=== PATIENT | female | born 1950 | race Native Hawaiian/Other Pacific Islander ===

== ENCOUNTER 2016-09-10 07:53 | Outpatient (CLI) | payer OTHER, MEDICARE ==
[~2016-09-10 07:53] MED LIST: ASA LO-DOSE81 MG OR; HYDR25TA60 PO; INSU100I2 SC; LEVAQUIN500 MG OR; METF100038 OR; MULTIVITAMI1 OR; MYSOLINE50 MG OR; SIMV20TA2 PO; TRIM800T12 PO
[2016-09-10 08:44] LABS: PLATELET COUNT 382 K/uL (152-353)
[2016-09-10 09:14] LABS: POTASSIUM 3.2 mmol/L (3.6-5.2); SODIUM 135 mmol/L (136-145)
== END 2016-09-10 21:24 | disposition home or self-care (01) ==
LOC: LABW 07:53
PROVIDERS: Family Medicine
DX: E11.9 Type 2 diabetes mellitus without complications (principal); I10 Essential (primary) hypertension; E55.9 Vitamin D deficiency, unspecified; E03.8 Other specified hypothyroidism; Z85.43 Personal history of malignant neoplasm of ovary; R82.99 Other abnormal findings in urine
CPT/HCPCS: 36415; 80053; 80061; 81000; 82043; 82306; 82570; 83036; 84439; 84443; 84550; 85027; 86304; 87077; 87086; 87088; 87186

== ENCOUNTER 2016-11-03 14:24 | Outpatient (CLI) | payer OTHER, MEDICARE | END 2016-11-03 19:45 | disposition home or self-care (01) | LOC: MAMMO 14:24 | DX: Z12.31 Encounter for screening mammogram for malignant neoplasm of breast (principal) | CPT/HCPCS: G0202-TC ==

== ENCOUNTER 2016-11-14 11:01 | Outpatient (CLI) | payer OTHER, MEDICARE | END 2016-11-14 12:01 | disposition home or self-care (01) | LOC: ED 11:01 | DX: Z23 Encounter for immunization (principal) | CPT/HCPCS: 90715; 96372 ==

== ENCOUNTER 2016-11-25 13:58 | Outpatient (CLI) | payer OTHER, MEDICARE | END 2016-11-25 19:20 | disposition home or self-care (01) | LOC: US 13:58 → MAMMO 14:00 → US 19:20 | DX: R92.8 Other abnormal and inconclusive findings on diagnostic imaging of breast (principal) | CPT/HCPCS: G0206-TC ==

== ENCOUNTER 2017-01-26 12:59 | Outpatient (CLI) | payer OTHER, MEDICARE | END 2017-01-26 19:30 | disposition home or self-care (01) | LOC: LAB 12:59 | DX: N39.0 Urinary tract infection, site not specified (principal) | CPT/HCPCS: 87077; 87086; 87088; 87186 ==

== ENCOUNTER 2017-02-23 12:36 | Outpatient (CLI) | payer OTHER, MEDICARE | END 2017-02-23 13:40 | disposition home or self-care (01) | LOC: RAD 12:36 | DX: C50.412 Malignant neoplasm of upper-outer quadrant of left female breast (principal) ==

== ENCOUNTER 2017-03-16 12:29 | Outpatient (CLI) | payer OTHER, MEDICARE | END 2017-03-16 19:37 | disposition home or self-care (01) | LOC: LAB 12:29 | DX: N39.0 Urinary tract infection, site not specified (principal) | CPT/HCPCS: 87088 ==

== ENCOUNTER 2018-08-04 08:38 | Outpatient (CLI) | payer OTHER, MEDICARE ==
[2018-08-04 09:04] LABS: PLATELET COUNT 336 K/uL (152-353)
[2018-08-04 09:19] LABS: POTASSIUM 3.3 mmol/L (3.6-5.2)
== END 2018-08-04 23:35 | disposition home or self-care (01) ==
LOC: LABW 08:38
PROVIDERS: Internal Medicine
DX: E11.9 Type 2 diabetes mellitus without complications (principal)
CPT/HCPCS: 36415; 80053; 80061; 81000; 82043; 82570; 83036; 84443; 85027

== ENCOUNTER 2018-08-10 09:53 | Outpatient (CLI) | payer OTHER, MEDICARE | END 2018-08-10 23:00 | disposition home or self-care (01) | LOC: CT 09:53 | DX: R10.32 Left lower quadrant pain (principal) | CPT/HCPCS: Q9963 ==

== ENCOUNTER 2018-11-22 11:50 | Outpatient (CLI) | payer OTHER, MEDICARE | END 2018-11-22 21:08 | disposition home or self-care (01) | LOC: LAB 11:50 | DX: R30.0 Dysuria (principal) | CPT/HCPCS: 87086; 87088 ==

== ENCOUNTER 2018-12-12 13:38 | Outpatient (CLI) | payer OTHER, MEDICARE | END 2018-12-12 18:00 | disposition home or self-care (01) | LOC: LABW 13:38 | DX: N39.0 Urinary tract infection, site not specified (principal) | CPT/HCPCS: 81000; 87077; 87086; 87088; 87186 ==

== ENCOUNTER 2019-02-07 13:52 | Outpatient (CLI) | payer OTHER, MEDICARE | END 2019-02-07 22:57 | disposition home or self-care (01) | LOC: RAD 13:52 | DX: C50.412 Malignant neoplasm of upper-outer quadrant of left female breast (principal); N95.8 Other specified menopausal and perimenopausal disorders ==

== ENCOUNTER 2019-04-26 09:52 | Outpatient (CLI) | payer OTHER, MEDICARE | END 2019-04-26 19:57 | disposition home or self-care (01) | LOC: US 09:52 | DX: R19.03 Right lower quadrant abdominal swelling, mass and lump (principal) ==

== ENCOUNTER 2019-12-05 08:35 | Outpatient (CLI) | payer OTHER, MEDICARE ==
[2019-12-05 08:56] LABS: PLATELET COUNT 369 K/uL (152-353)
[2019-12-05 09:12] LABS: POTASSIUM 3.4 mmol/L (3.6-5.2)
== END 2019-12-05 19:10 | disposition home or self-care (01) ==
LOC: LABW 08:35
PROVIDERS: Internal Medicine
DX: Z01.818 Encounter for other preprocedural examination (principal); E11.9 Type 2 diabetes mellitus without complications; R82.998 Other abnormal findings in urine
CPT/HCPCS: 36415; 80053; 80061; 81000; 82043; 82570; 83036; 84439; 84443; 85027; 87086; 87088

== ENCOUNTER 2020-06-26 11:50 | Outpatient (CLI) | payer OTHER, MEDICARE ==
[2020-06-26 12:35] LABS: POTASSIUM 3.8 mmol/L (3.6-5.2)
== END 2020-06-26 23:24 | disposition home or self-care (01) ==
LOC: LABW 11:50
PROVIDERS: Internal Medicine Cardiovascular Disease
DX: Z79.899 Other long term (current) drug therapy (principal)
CPT/HCPCS: 36415; 80048

== ENCOUNTER 2020-12-23 16:03 | Outpatient (CLI) | payer OTHER, MEDICARE ==
[2020-12-23 16:18] LABS: PLATELET COUNT 345 K/uL (152-353)
[2020-12-23 16:34] LABS: POTASSIUM 4.7 mmol/L (3.6-5.2)
== END 2020-12-23 22:32 | disposition home or self-care (01) ==
LOC: LAB 16:03
PROVIDERS: ATTEND Internal Medicine
DX: E11.9 Type 2 diabetes mellitus without complications (principal); R82.998 Other abnormal findings in urine
CPT/HCPCS: 80053; 80061; 81000; 82043; 83036; 84439; 84443; 85027; 87077; 87086; 87088; 87186

== ENCOUNTER 2021-02-10 13:58 | Outpatient (CLI) | payer OTHER, MEDICARE | END 2021-02-10 20:05 | disposition home or self-care (01) | LOC: RAD 13:58 | PROVIDERS: ATTEND Nurse Practitioner Family | DX: Z13.820 Encounter for screening for osteoporosis (principal); N95.8 Other specified menopausal and perimenopausal disorders; C50.912 Malignant neoplasm of unspecified site of left female breast; C50.412 Malignant neoplasm of upper-outer quadrant of left female breast ==

== ENCOUNTER 2021-03-05 09:33 | Outpatient (CLI) | payer OTHER, MEDICARE | END 2021-03-05 22:12 | disposition home or self-care (01) | LOC: US 09:33 | PROVIDERS: ATTEND Internal Medicine Cardiovascular Disease | DX: R09.89 Other specified symptoms and signs involving the circulatory and respiratory systems (principal) ==

== ENCOUNTER 2021-10-14 13:19 | Outpatient (CLI) | payer OTHER, MEDICARE | END 2021-10-14 19:02 | disposition home or self-care (01) | LOC: LAB 13:19 | PROVIDERS: ATTEND Internal Medicine | DX: D64.9 Anemia, unspecified (principal); E53.8 Deficiency of other specified B group vitamins | CPT/HCPCS: 82607; 82728; 82746; 83540; 83550 ==

== ENCOUNTER 2022-01-13 13:59 | Outpatient (CLI) | payer OTHER, MEDICARE | END 2022-01-13 19:05 | disposition home or self-care (01) | LOC: MRI 13:59 | PROVIDERS: ATTEND Psychiatry & Neurology Neurology | DX: M54.12 Radiculopathy, cervical region (principal) ==

== ENCOUNTER 2022-04-08 10:33 | Outpatient (CLI) | payer OTHER, MEDICARE ==
[2022-04-08 11:18] LABS: PLATELET COUNT 323 K/uL (152-353)
== END 2022-04-08 19:23 | disposition home or self-care (01) ==
LOC: LABW 10:33
PROVIDERS: ATTEND Neurological Surgery
DX: Z01.818 Encounter for other preprocedural examination (principal); G56.01 Carpal tunnel syndrome, right upper limb; Z79.01 Long term (current) use of anticoagulants; I10 Essential (primary) hypertension
CPT/HCPCS: 36415; 80048; 85027

== ENCOUNTER 2022-05-12 12:39 | Outpatient (CLI) | payer OTHER, MEDICARE | END 2022-05-12 19:38 | disposition home or self-care (01) | LOC: LAB 12:39 | PROVIDERS: ATTEND Internal Medicine | DX: N39.0 Urinary tract infection, site not specified (principal) | CPT/HCPCS: 87077; 87086; 87088; 87186 ==

== ENCOUNTER 2022-09-07 12:19 | Outpatient (CLI) | payer OTHER, MEDICARE | END 2022-09-07 21:38 | disposition home or self-care (01) | LOC: LAB 12:19 | PROVIDERS: ATTEND Internal Medicine | DX: Z00.00 Encounter for general adult medical examination without abnormal findings (principal); Z13.820 Encounter for screening for osteoporosis; E55.9 Vitamin D deficiency, unspecified; E11.9 Type 2 diabetes mellitus without complications | CPT/HCPCS: 80053; 80061; 81002; 82306; 83036; 84439; 84443 ==

== ENCOUNTER 2023-01-24 09:42 | Emergency (ER) | payer OTHER, MEDICARE ==
[~2023-01-24] VITALS: Ht 152.4 cm; Wt 78.0 kg
[2023-01-24 09:55] VITALS: BP 182/77; TEMP 98.6
== END 2023-01-24 10:58 | disposition home or self-care (01) ==
LOC: ED 09:42
DX: M10.9 Gout, unspecified (principal)
CPT/HCPCS: 96372; 99282; J1885

== ENCOUNTER 2023-01-26 12:15 | Outpatient (CLI) | payer OTHER, MEDICARE | END 2023-01-26 21:58 | LOC: RAD 12:15 | PROVIDERS: ATTEND Internal Medicine | DX: M12.58 Traumatic arthropathy, other specified site (principal) ==

== ENCOUNTER 2023-03-09 21:56 | Observation (INO) | payer OTHER, MEDICARE ==
[~2023-03-09] VITALS: Ht 152.4 cm; Wt 79.9 kg
[2023-03-09 22:12] VITALS: BP 134/59; TEMP 98.3
[2023-03-09 22:20] VITALS: BP 141/70
[2023-03-09 22:24] LABS: PLATELET COUNT 361 K/uL (152-353)
[2023-03-09 22:30] VITALS: BP 140/73
[2023-03-09 22:33] LABS: POTASSIUM 3.2 mmol/L (3.6-5.2)
[2023-03-09 23:00] VITALS: BP 117/55
[2023-03-09 23:30] VITALS: BP 146/74
[2023-03-10] VITALS (7 sets, daily range): BP systolic 140–193; BP diastolic 62–84; TEMP 97.6–99; Ht 152.4 cm; Wt 79.9 kg
[2023-03-10 05:23] LABS: PLATELET COUNT 336 K/uL (152-353)
[2023-03-10] MEDS ORDERED: BENICAR40 MG PO (05:23)
[2023-03-10] MEDS ORDERED: SIMV20TA2 PO (05:24)
[2023-03-10] MEDS ORDERED: LEVO-T25 MCG PO (05:24)
[2023-03-10] MEDS ORDERED: METFORMIN ER1000 MG PO (05:25)
[2023-03-10] MEDS ORDERED: PRIMIDONE50 M1 PO (05:26)
[2023-03-10] MEDS ORDERED: INSU100I2 SC (05:26)
[2023-03-10] MEDS ORDERED: KP FOLIC ACID1 MG PO (05:28)
[2023-03-10] MEDS ORDERED: B121000 MC1 PO (05:30)
[2023-03-10] MEDS ORDERED: BAYER ASA325 M1 PO (05:33)
[2023-03-10] MEDS ORDERED: CALCIUM600 M1 PO (05:35)
[2023-03-10 05:45] LABS: POTASSIUM 3.4 mmol/L (3.6-5.2)
[2023-03-10] MEDS ORDERED: METFORMIN HYD1000 MG PO (12:53)
[2023-03-10] MEDS ORDERED: CYAN10009 IM (12:58)
[2023-03-10] MEDS ORDERED: MITIGARE0.6 MG PO (12:59)
[2023-03-10] MEDS ORDERED: ONDA4TAB3 PO (12:59)
[2023-03-10] MEDS ORDERED: OLMESARTAN MEDO PO (13:02)
[2023-03-11 04:00] VITALS: BP 136/85; TEMP 96.9
[2023-03-11 06:23] LABS: POTASSIUM 3.6 mmol/L (3.6-5.2)
[2023-03-11 06:33] LABS: PLATELET COUNT 350 K/uL (152-353)
[2023-03-11 08:00] VITALS: BP 132/66; TEMP 97.9
[2023-03-11] MEDS ORDERED: CLOP75TA2 PO (11:37)
[2023-03-11] MEDS ORDERED: Atorvastatin Calcium PO (11:38)
[2023-03-11 12:00] VITALS: BP 132/54; TEMP 98.6
== END 2023-03-11 14:10 | disposition home or self-care (01) ==
LOC: ED 21:56 → MED/SURG 23:08
PROVIDERS: Family Medicine; Internal Medicine Endocrinology, Diabetes & Metabolism; ADMIT Internal Medicine; ATTEND Internal Medicine
DX: I63.89 Other cerebral infarction (principal); R29.810 Facial weakness; R47.81 Slurred speech; I10 Essential (primary) hypertension; E11.9 Type 2 diabetes mellitus without complications; E03.9 Hypothyroidism, unspecified; E53.8 Deficiency of other specified B group vitamins; M10.9 Gout, unspecified; N39.0 Urinary tract infection, site not specified; Z79.899 Other long term (current) drug therapy; Z79.4 Long term (current) use of insulin
CPT/HCPCS: 36415; 80048; 80053; 80061; 81000; 81002; 82948; 83735; 84100; 84443; 85027; 85610; 87086; 87088; 93005; 96361; 96365; 96367; 96372; 96374; 96375; 99221; 99284; G0378; J0696; J2930; J3475

== ENCOUNTER 2023-03-14 13:21 | Emergency (ER) | payer OTHER, MEDICARE ==
[~2023-03-14] VITALS: Ht 152.4 cm; Wt 74.4 kg
[2023-03-14 13:21] VITALS: TEMP 98.6
[~2023-03-14 13:21] MED LIST changes: +Atorvastatin Calcium PO; +B121000 MC1 PO; +BAYER ASA325 M1 PO; +BENICAR40 MG PO; +CALCIUM600 M1 PO; +CLOP75TA2 PO; +CYAN10009 IM; +KP FOLIC ACID1 MG PO; +LEVO-T25 MCG PO; +METFORMIN ER1000 MG PO; +METFORMIN HYD1000 MG PO; +MITIGARE0.6 MG PO; +OLMESARTAN MEDO PO; +ONDA4TAB3 PO; +PRIMIDONE50 M1 PO
[2023-03-14 13:53] LABS: PLATELET COUNT 396 K/uL (152-353)
[2023-03-14 13:59] LABS: POTASSIUM 3.2 mmol/L (3.6-5.2)
[2023-03-14 14:52] LABS: PARTIAL THROMBOPLASTIN TIME 29.7 SECONDS (23.9-36.7)
[2023-03-14 15:30] VITALS: BP 119/83
== END 2023-03-14 15:34 | disposition short-term general hospital (02) ==
LOC: ED 13:21
PROVIDERS: Family Medicine
DX: I48.20 Chronic atrial fibrillation, unspecified (principal); R77.8 Other specified abnormalities of plasma proteins; R90.82 White matter disease, unspecified
CPT/HCPCS: 36415; 80053; 84484; 85027; 85610; 85730; 93005; 96361; 96365; 96375; 99285; J0282; J1644; J3490

== ENCOUNTER 2023-03-31 14:51 | Outpatient (CLI) | payer OTHER, MEDICARE ==
[2023-04-01] MEDS ORDERED: XARELTO20 MG PO (19:16)
[2023-04-01] MEDS ORDERED: FOLI1TAB26 PO (19:21)
[2023-04-01] MEDS ORDERED: SIMV20TA2 PO (19:22)
[2023-04-01] MEDS ORDERED: AMLODIPINE BESYLATE PO (19:23)
[2023-04-01] MEDS ORDERED: CYAN10009 IM (19:25)
[2023-04-01] MEDS ORDERED: VITAMIN D PO (19:28)
== END 2023-03-31 19:11 | disposition home or self-care (01) ==
LOC: LAB 14:51
PROVIDERS: ATTEND Internal Medicine
DX: E83.42 Hypomagnesemia (principal)
CPT/HCPCS: 83735

== ENCOUNTER 2023-04-01 15:40 | Observation (INO) | payer OTHER, MEDICARE ==
[~2023-04-01] VITALS: Ht 152.4 cm; Wt 76.4 kg
[2023-04-01 18:28] VITALS: BP 149/56; TEMP 97.6; Ht 152.4 cm; Wt 76.4 kg
[2023-04-01] MEDS ORDERED: XARELTO20 MG PO (19:16)
[2023-04-01] MEDS ORDERED: FOLI1TAB26 PO (19:21)
[2023-04-01] MEDS ORDERED: SIMV20TA2 PO (19:22)
[2023-04-01] MEDS ORDERED: AMLODIPINE BESYLATE PO (19:23)
[2023-04-01] MEDS ORDERED: CYAN10009 IM (19:25)
[2023-04-01] MEDS ORDERED: VITAMIN D PO (19:28)
[2023-04-01 20:00] VITALS: BP 122/46; TEMP 97.7
== END 2023-04-01 22:52 | disposition home or self-care (01) ==
LOC: MED/SURG 15:40
PROVIDERS: ADMIT Internal Medicine Endocrinology, Diabetes & Metabolism; ATTEND Internal Medicine Endocrinology, Diabetes & Metabolism
DX: E83.42 Hypomagnesemia (principal); I48.0 Paroxysmal atrial fibrillation; Z79.01 Long term (current) use of anticoagulants; E11.9 Type 2 diabetes mellitus without complications; I10 Essential (primary) hypertension; E03.8 Other specified hypothyroidism
CPT/HCPCS: 83735; 96365; 96367; 99221; G0378; G0379; J3475

== ENCOUNTER 2023-04-02 15:09 | Outpatient (CLI) | payer OTHER, MEDICARE ==
[~2023-04-02 15:09] MED LIST changes: +AMLODIPINE BESYLATE PO; +FOLI1TAB26 PO; +VITAMIN D PO; +XARELTO20 MG PO
== END 2023-04-02 21:56 | disposition home or self-care (01) ==
LOC: LAB 15:09
PROVIDERS: ATTEND Internal Medicine
DX: N39.0 Urinary tract infection, site not specified (principal)
CPT/HCPCS: 87086; 87088

== ENCOUNTER 2023-04-21 13:32 | Outpatient (CLI) | payer OTHER, MEDICARE ==
[2023-04-21 13:45] LABS: PLATELET COUNT 499 K/uL (152-353)
[2023-04-21 14:05] LABS: POTASSIUM 3.4 mmol/L (3.6-5.2)
== END 2023-04-21 21:23 | disposition home or self-care (01) ==
LOC: LAB 13:32
PROVIDERS: ATTEND Internal Medicine
DX: E11.9 Type 2 diabetes mellitus without complications (principal); E03.8 Other specified hypothyroidism; E83.42 Hypomagnesemia; D64.89 Other specified anemias; I48.91 Unspecified atrial fibrillation; I50.9 Heart failure, unspecified; E78.49 Other hyperlipidemia; I11.0 Hypertensive heart disease with heart failure
CPT/HCPCS: 80053; 80061; 83036; 83735; 84439; 84443; 85027

== ENCOUNTER 2023-10-14 12:14 | Outpatient (CLI) | payer OTHER, MEDICARE ==
[~2023-10-14 12:14] MED LIST changes: +CIPR500T PO; +LIPITOR20 MG PO; +MAGN400T4 PO; +METRONIDAZOLE500 MG PO; +NITR100C56 PO; +PACERONE200 MG PO; +[UNRECOGNIZED DRUG - CODE] PO
== END 2023-10-14 19:30 | disposition home or self-care (01) ==
LOC: LAB 12:14
PROVIDERS: ATTEND Internal Medicine
DX: E83.42 Hypomagnesemia (principal)
CPT/HCPCS: 83735

== ENCOUNTER 2023-10-18 13:50 | Outpatient (CLI) | payer OTHER, MEDICARE ==
[~2023-10-18] VITALS: Ht 152.4 cm; Wt 74.8 kg
[2023-10-18] MEDS ORDERED: [UNRECOGNIZED DRUG - OTHER] IV ONE (14:00)
== END 2023-10-18 22:22 | disposition home or self-care (01) ==
LOC: INF 13:50
PROVIDERS: ATTEND Internal Medicine
DX: E83.42 Hypomagnesemia (principal)
CPT/HCPCS: 96365; J3475